=== PATIENT | female | born 1980 | race Caucasian/White ===

== ENCOUNTER 2020-12-10 16:09 | Inpatient (IN) | payer OTHER, SELFPAY ==
[2020-12-10 16:35] VITALS: BP 118/85; PULSE 87; RESP 18; TEMP 36.9; O2SAT 99; BMI 22.5
--- NOTE | 2020-12-10 17:06 | ED_ITS ---
HPI - Psych General Chief Complaint: Psychiatric Symptoms Stated Complaint: crisis sec12 Time Seen by Provider: 12/10/20 16:40 Source: patient, family and EMS Mode of arrival: EMS Limitations: no limitations History of Present Illness HPI Narrative: 40-year-old female with a past medical history of psychosis not otherwise specified here with section [address]. Per father the patient has been off of her medications since January of 2020 and has been increasingly paranoid with delusions. She is currently living in a home that has no electricity and has stopped paying her rent. Patient provides very limited history of present illness. She tells me she is here to receive a COVID vaccine. She denies any hallucinations, suicidal or homicidal ideations. No physical complaints. Related Data Allergies Allergy/AdvReac Type Severity Reaction Status Date / Time No Known Allergies Allergy Unverified 03/22/20 19:42 [No Known Allergies*] Review of Systems Review of Systems: Yes all other systems are reviewed and are negative Constitutional: Constitutional: Reports no additional constitutional complaints, Denies body ache(s), Denies chills, Denies fever(s), Denies h eadache(s) and Denies weakness Eyes: Eyes: Reports no additional eye complaints and Denies change in vision ENT: Reports system reviewed and no additional complaints, except as documented, Denies dizziness, Denies headache(s), Denies nasal congestion, Denies nasal discharge and Denies neck pain Cardiovascular: Cardiovascular: Reports no additional cardiovascular complaints, Denies chest pain, Denies leg edema and Denies dyspnea Respiratory: Respiratory: Reports no additional respiratory complaints, Denies cough and Denies dyspnea Gastrointestinal: Gastrointestinal: Reports no additional gastrointestinal complaints, Denies abdominal pain, Denies diarrhea, Denies nausea and Denies vomiting Genitourinary: Genitourinary: Reports no additional female genitourinary co mplaints and Denies urinary incontinence Musculoskeletal: Musculoskeletal: Reports no additional musculoskeletal complaints, Denies back pain, Denies arthralgias, Denies joint swelling, Denies neck pain, Denies numbness and Denies tingling Integumentary/Breasts: Skin/Breast: Reports system reviewed and no additional complaints, except as docu and Denies rash Neurologic: Reports system reviewed and no additional complaints, except as documented, Denies Abnormal speech present, Reports behavioral changes, Denies dizziness, Denies headache(s), Denies numbness, Denies tingling and Denies weakness Psychiatric: Psychiatric: Reports behavioral changes and Reports paranoia [facility] Past Medical History Attestation statement: The following information was validated with the patient. Source: old records reviewed and nursing notes reviewed Medical History Schizo affective schizophrenia Social History Social History Advance Directives: No Advance Directives Information Provided: No Physical Exam Vital Signs: Vital Signs: Last Vital Signs Temp 98.5 F 12/10/20 16:35 Pulse 87 12/10/20 16:35 Resp 18 12/10/20 16:35 BP 118/85 12/10/20 16:35 Pulse Ox 99 12/10/20 16:35 Body Mass Index 22.5 Const: General: cooperative, healthy appearing, comfortable and no acute distress Orientation/consciousness: patient oriented x3 Limitations: no limitations HENMT: Head: Yes normal to inspection Ears: hearing grossly normal bilaterally General nose exam: Normal external nose present Face and sinus: Yes normal facial exam Mouth: Normal oral and palatal mucosa present Throat: Yes posterior oropharynx normal Eyes: General: appearance normal, both eyes and all related structures Pupils: Equal, round and reactive pupils present Neck: Neck: Yes normal visual inspection Chest: Chest palpation & inspection: normal inspection of the chest Resp: Effort & Inspection: normal respiratory effort Auscultation: clear to auscultation bilaterally Cardio: Rate: regular rate Rhythm: regular rhythm Peripheral pulses: Peripheral pulses 2+ throughout GI: Inspection: Yes normal to inspection Palpation (GI): Soft to palpation and nontender Auscultation: normal bowel sounds Back/Spine/Pelvis: Thoracic/Lumbar Spine: thoracic and lumbar spine normal to inspection Skin: General skin exam: no rashes or lesions noted Neuro: General: patient oriented x3, no focal motor deficits and normal sensation to monofilament Cranial nerves: Yes Equal, round and reactive pupils present Speech: No Abnormal speech present Gait exam (Neuro): Normal gait present Motor exam (neuro): 5/5 motor strength present throughout Extrem: General: Yes normal to inspection Psych: Other: Rambling speech Becomes irritable with questioning Does not answer questions appropriately Appearance: grossly normal Insight: Poor insight present (Psych) Judgement: Poor judgement present (Psych) Course Course Course Narrative: 40-year-old female with a past medical history of psychosis not otherwise specified here with her paranoia, delusions, off all psychiatric medications for more than 6 months. Most of history is obtained from the father Charanjit. No concern for acute ingestion or trauma. Her dad the patient was seen in the community and was placed on a Section 12. Unclear if she is a bed search. Will need labs, drug screen, BHN evaluation. 2049 placed in physician observation pending S evaluation and disposition 2099-Sign out to night team pending above. MDM - Psych Medical Records Attestation: I reviewed the patient's medical records. Lab Data Attestation: I reviewed the patient's lab results. Result diagrams: 12/10/20 17:45 12/10/20 17:45 Labs: Lab Results 12/10/20 12/10/20 12/10/20 Range/Units 17:45 17:45 17:45 WBC 5.9 (4.8-10.8) X10*3/uL RBC 4.44 (4.20-5.50) X10*6/uL Hgb 13.0 (12.0-16.0) g/dl Hct 39.3 (37-47) % MCV 88.5 (80-98) fL MCH 29.3 (27.0-33.0) pg MCHC 33.1 (31.0-35.0) g/dl RDW 12.3 (11.0-16.0) % Plt Count 147 L (160-400) X10*3/uL MPV 11.1 (9.4-12.3) fL Immature Gran % (Auto) 0.3 (0.0-0.4) % Neut % (Auto) 60.3 (45-73) % Lymph % (Auto) 27.3 (20-40) % Lares % (Auto) 9.8 (2-11) % Eos % (Auto) 2.0 (0-4) % Baso % (Auto) 0.3 (0-2) % Lymph # (Auto) 1.6 (1.2-4.9) X10*3/uL Lares # (Auto) 0.6 (0.1-1.2) X10*3/uL Eos # (Auto) 0.1 (0.0-0.4) X10*3/uL Baso # (Auto) 0.0 (0.0-0.2) X10*3/uL Abs Immat Gran (auto) 0.02 (0.00-0.03) X10*3/uL Absolute Neuts (auto) 3.5 (2.0-8.3) X10*3/uL Absolute Nucleated RBC 0.000 (0.0-0.012) X10*3/uL Nucleated RBC % (auto) 0.0 (0.0-0.2) /100WBC Sodium 138 (135-145) mmol/L Potassium 3.9 (3.3-5.1) mmol/L Chloride 104 (96-108) mmol/L Carbon Dioxide 26 (22-29) mmol/L Anion Gap 12 (12-20) BUN 17 H (9-16) mg/dL Creatinine 0.71 (0.5-1.4) mg/dL Estim Creat Clear Calc 96.6 Estimated GFR > 60 Random Glucose 98 (60-115) mg/dL Calcium 9.3 (8.4-10.2) mg/dL Total Bilirubin 0.5 (0.0-1.0) mg/dL Direct Bilirubin < 0.2 (0.0-0.5) mg/dL AST 18 (5-31) U/L ALT 10 (0-31) U/L Alkaline Phosphatase 67 (39-117) U/L Total Protein 7.0 (6.5-8.0) g/dL Albumin 4.3 (3.5-5.0) g/dL Urine Test (NEGATIVE) Salicylates < 5.0 L (15-30) mg/dL Urine Opiates Screen (Not Detect) Acetaminophen < 1 (<30) mcg/mL Ur Barbiturates Screen (Not Detect) Ur Phencyclidine Scrn (Not Detect) Ur Amphetamines Screen (Not Detect) U Benzodiazepines Scrn (Not Detect) Urine Cocaine Screen (Not Detect) U Marijuana (THC) Screen (Not Detect) Ethyl Alcohol < 10 mg/dL 12/10/20 12/10/20 Range/Units 18:03 18:03 WBC (4.8-10.8) X10*3/uL RBC (4.20-5.50) X10*6/uL Hgb (12.0-16.0) g/dl Hct (37-47) % MCV (80-98) fL MCH (27.0-33.0) pg MCHC (31.0-35.0) g/dl RDW (11.0-16.0) % Plt Count (160-400) X10*3/uL MPV (9.4-12.3) fL Immature Gran % (Auto) (0.0-0.4) % Neut % (Auto) (45-73) % Lymph % (Auto) (20-40) % Lares % (Auto) (2-11) % Eos % (Auto) (0-4) % Baso % (Auto) (0-2) % Lymph # (Auto) (1.2-4.9) X10*3/uL Lares # (Auto) (0.1-1.2) X10*3/uL Eos # (Auto) (0.0-0.4) X10*3/uL Baso # (Auto) (0.0-0.2) X10*3/uL Abs Immat Gran (auto) (0.00-0.03) X10*3/uL Absolute Neuts (auto) (2.0-8.3) X10*3/uL Absolute Nucleated RBC (0.0-0.012) X10*3/uL Nucleated RBC % (auto) (0.0-0.2) /100WBC Sodium (135-145) mmol/L Potassium (3.3-5.1) mmol/L Chloride (96-108) mmol/L Carbon Dioxide (22-29) mmol/L Anion Gap (12-20) BUN (9-16) mg/dL Creatinine (0.5-1.4) mg/dL Estim Creat Clear Calc Estimated GFR Random Glucose (60-115) mg/dL Calcium (8.4-10.2) mg/dL Total Bilirubin (0.0-1.0) mg/dL Direct Bilirubin (0.0-0.5) mg/dL AST (5-31) U/L ALT (0-31) U/L Alkaline Phosphatase (39-117) U/L Total Protein (6.5-8.0) g/dL Albumin (3.5-5.0) g/dL Urine Test NEGATIVE (NEGATIVE) Salicylates (15-30) mg/dL Urine Opiates Screen Not Detected (Not Detect) Acetaminophen (<30) mcg/mL Ur Barbiturates Screen Not Detected (Not Detect) Ur Phencyclidine Scrn Not Detected (Not Detect) Ur Amphetamines Screen Not Detected (Not Detect) U Benzodiazepines Scrn Not Detected (Not Detect) Urine Cocaine Screen Not Detected (Not Detect) U Marijuana (THC) Screen Not Detected (Not Detect) Ethyl Alcohol mg/dL Discharge Plan Discharge Clinical Impression: Acute psychosis
[2020-12-10 17:54] LABS: MANUAL DIFF FLAG NO
[2020-12-10 17:57] LABS: Basophils Percent Auto 0.3 % (0-2); Eosinophils Absolute Auto 0.1 X10*3/uL (0.0-0.4); Hematocrit 39.3 % (37-47); Imm Gran Abs Auto 0.02 X10*3/uL (0.00-0.03); Imm Gran Pct Auto 0.3 % (0.0-0.4); Lymphocytes Absolute Auto 1.6 X10*3/uL (1.2-4.9); Lymphocytes Percent Auto 27.3 % (20-40); Mean Corpuscular HGB Conc 33.1 g/dl (31.0-35.0); Mean Corpuscular Hemoglobin 29.3 pg (27.0-33.0); Mean Corpuscular Volume 88.5 fL (80-98); Mean Platelet Volume 11.1 fL (9.4-12.3); Monocytes Absolute Auto 0.6 X10*3/uL (0.1-1.2); Monocytes Percent Auto 9.8 % (2-11); Neutrophils Absolute Auto 3.5 X10*3/uL (2.0-8.3); Neutrophils Percent Auto 60.3 % (45-73); Platelet Count 147 X10*3/uL (160-400); Red Blood Count 4.44 X10*6/uL (4.20-5.50); Red Cell Distribution Width 12.3 % (11.0-16.0); White Blood Count 5.9 X10*3/uL (4.8-10.8)
[2020-12-10 18:19] LABS: UPreg QC Valid YES; Urine Pregnancy NEGATIVE (NEGATIVE)
[2020-12-10 18:23] LABS: Ethanol < 10 mg/dL
[2020-12-10 18:27] LABS: Acetaminophen LAB < 1 mcg/mL (<30); Alanine Aminotransferase 10 U/L (0-31); Albumin Level 4.3 g/dL (3.5-5.0); Alkaline Phosphatase 67 U/L (39-117); Anion Gap 12 (12-20); Aspartate Amino Transferase 18 U/L (5-31); Bilirubin Direct < 0.2 mg/dL (0.0-0.5); Bilirubin Total 0.5 mg/dL (0.0-1.0); Blood Urea Nitrogen 17 mg/dL (9-16); Calcium 9.3 mg/dL (8.4-10.2); Carbon Dioxide 26 mmol/L (22-29); Chloride 104 mmol/L (96-108); Creatinine Clr Calc Pharmacy 96.6; Estimated Glomerular Filt Rate > 60; Glucose Random 98 mg/dL (60-115); Potassium 3.9 mmol/L (3.3-5.1); Salicylate < 5.0 mg/dL (15-30); Sodium 138 mmol/L (135-145)
--- NOTE | 2020-12-10 18:33 | MHC.CARE ---
CARE team contacted Hector re: pt, who arrived on Sect 12a. Per Hector- pt was evaluated prior to arrival and is an active inpt psych bedsearch.
[2020-12-10 18:35] LABS: Amphetamine Screen Urine Not Detected (Not Detect); Barbiturates, Urine Not Detected (Not Detect); Benzodiazepines Screen Urine Not Detected (Not Detect); Cannabinoid Screen Urine Not Detected (Not Detect); Cocaine Screen Urine Not Detected (Not Detect); Opiate Screen Urine Not Detected (Not Detect); Phencyclidine Screen Urine Not Detected (Not Detect)
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
[2020-12-11 11:01] VITALS: BP 104/55; PULSE 68; O2SAT 100
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
--- NOTE | 2020-12-11 18:25 | PC.NURSE ---
Patient does not have insight into why she is here. This reporterr went to her room to have her sign her treatment plan and she said, I'd like to wait until my father is here to go over this. I am here for a covid vaccine. This doesn't make sense. She has not been out of her room.
[2020-12-11 21:48] VITALS: BP 103/66; PULSE 85; TEMP 36.8; O2SAT 99
--- NOTE | 2020-12-12 05:32 | PC.NURSE ---
3day notice submitted on 12/11/20 up 12/14/20
[2020-12-12 06:00] VITALS: BP 106/74; PULSE 84; TEMP 37.1; O2SAT 99
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
[2020-12-12 21:32] VITALS: BP 109/60; PULSE 94; RESP 18; O2SAT 97
[2020-12-13 06:00] VITALS: BP 102/58; PULSE 60; RESP 16; O2SAT 97
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
[2020-12-13 20:18] VITALS: BP 105/55; PULSE 68; RESP 16; TEMP 36.9; O2SAT 97
[2020-12-14 06:00] VITALS: BP 111/68; PULSE 82; RESP 16; O2SAT 98
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
[2020-12-14 18:00] VITALS: BP 105/60; PULSE 76; RESP 18; TEMP 36.9; O2SAT 97
[2020-12-15 06:00] VITALS: BP 102/69; PULSE 88; RESP 18; TEMP 36.4; O2SAT 98
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
[2020-12-15 20:00] VITALS: BP 107/59; PULSE 73; O2SAT 96
[2020-12-16 06:00] VITALS: BP 110/61; PULSE 68; RESP 18; TEMP 36.6; O2SAT 98
--- NOTE | 2020-12-16 15:20 | P.PNPSI_ITS ---
Subjective Subjective Date of Service: 12/16/20 Reason For Visit: Acute psychosis Interim History: Continues to deny having any issues or concerns. Guarded around story writer interviewing patient and reports that she just needs to be discharged and is hopeful that she will be able to meet with her father tomorrow to facilitate same. Otherwise did not want to discuss admission circumstances or how she was doing. Materials Scheduler of Systems Review of Systems unremarkable Yes all other systems are reviewed and are negative Constitutional: Reports no additional constitutional complaints, Denies body ache(s), Denies chills, Denies fever(s), Denies headache(s) and Denies weakness Eyes: Reports no additional eye complaints and Denies change in vision Reports system reviewed and no additional complaints, except as documented, Denies dizziness, Denies headache(s), Denies nasal congestion, Denies nasal discharge and Denies neck pain Cardiovascular: Reports no additional cardiovascular complaints, Denies chest pain, Denies leg edema, Denies lightheadedness and Denies dyspnea Respiratory: Reports no additional respiratory complaints, Denies cough and Denies dyspnea Gastrointestinal: Reports no additional gastrointestinal complaints, Denies abdominal pain, Denies constipation, Denies diarrhea, Denies nausea and Denies vomiting Musculoskeletal: Reports no additional musculoskeletal complaints, Denies back pain, Denies arthralgias, Denies joint swelling, Denies neck pain, Denies numbness and Denies tingling Skin/Breast: Reports system reviewed and no additional complaints, except as docu and Denies rash Reports system reviewed and no additional complaints, except as documented, Den ies Abnormal speech present, Reports behavioral changes, Denies dizziness, Denies headache(s), Denies numbness, Denies tingling and Denies weakness Psychiatric: Reports behavioral changes and Reports paranoia Mental Status Exam Mental Status Exam Narrative: Isolative. Very guarded. Still appears to not understand potential reasons for being in the hospital or why people may be concerned around her well-being and mental state and ability to care for self. Restricted affect. No evidence of SI or HI. Insight and judgment limited Diagnostics Vital Signs (24Hr): Vital Signs - 24 hr 12/15/20 20:00 12/16/20 06:00 Temperature 97.8 F Pulse Rate 73 68 Respiratory Rate 18 Blood Pressure 107/59 L 110/61 Pulse Oximetry 96 98 Body Mass Index 22.5 Labs Results: 12/10/20 17:45 12/10/20 17:45 Medications Medications Current Medications Generic Name Dose Route Start Last Admin Trade Name Freq PRN Reason Stop Dose Admin Acetaminophen 650 mg 12/11/20 00:00 Acetaminophen 325 Mg Tablet PO Q6H PRN Headache/Pain Mild Scale (1-3) Al Hydroxide/Mg Hydroxide 30 ml 12/11/20 00:00 Magnesium Hydrox/Alum Hydrox 30 Ml Oral.Susp PO Q6H PRN Heartburn/Nausea Diphenhydramine HCl 50 mg 12/11/20 00:00 Diphenhydramine Hcl 25 Mg Tablet PO Q4H PRN Restlessness Haloperidol 5 mg 12/11/20 00:00 Haloperidol 5 Mg Tablet PO Q4H PRN Restlessness Hydroxyzine HCl 25 mg 12/11/20 00:00 Hydroxyzine Hcl 25 Mg Tablet PO TID PRN Anxiety Magnesium Hydroxide 30 ml 12/11/20 00:00 Milk Of Magnesia 30 Ml Oral.Susp PO DAILY PRN Constipation Nicotine 21 mg 12/11/20 00:00 Nicotine 21 Mg Patch.Td24 TRANSDERMA DAILY PRN nicotine cessation Nicotine Polacrilex 4 mg 12/11/20 00:00 Nicotine Polacrilex 2 Mg Gum BUCCAL Q2H PRN Nicotine Cravings Trazodone HCl 50 mg 12/11/20 00:00 Trazodone Hcl 50 Mg Tablet PO BEDTIME PRN Insomnia Allergies Allergies Allergy/AdvReac Type Severity Reaction Status Date / Time No Known Allergies Allergy Unverified 03/22/20 19:42 [No Known Allergies*] Assessment & Plan Assessment & Plan (1) Schizophrenia, paranoid, chronic with acute exacerbation: Status: Acute Code(s): F20.0 - Paranoid schizophrenia Assessment and Plan: Ms. Prescott is a 40 year-old woman with hx of schizophrenia. 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 She currently has not insight into psychiatric symptoms. She has been increasingly more paranoid affecting her ability to care for self including being able to pay bills, buy food, house condemned by health department due to no electricity and she loss job due not responding to email due to paranoia. She currently declines any antipsychotics. 1. Medication can be offered, pt understands she can decline given that there is not court order. 12/16/20: no changes as declining his scheduled medications. Understand that treatment team have filed for commitment hearing Greater than 50% of the session was spent on counseling and/or coordination of care Reason for contiued inpatient stay Substantial Risk for: inability to function and rapid decompensation
[2020-12-16 20:27] VITALS: BP 107/60; PULSE 95; TEMP 36.7; O2SAT 97
--- NOTE | 2020-12-17 11:48 | HO.PSYCHPN ---
Subjective Subjective Date of Service: 12/17/20 Reason For Visit: Acute psychosis Interim History: Emma continues to report that she is here for covid vaccine. She states she does not have any mental illness and does not need psychiatric treatment. She states she is worried that people may break into her house and need to return home soon. She states her father reassured her that doors are locked and house safe, however, pt reports she is not sure about this. She denies SI/HI. She continues to decline medications for paranoia. Review of Systems Review of Systems unremarkable Yes all other systems are reviewed and are negative Constitutional: Reports no additional constitutional complaints, Denies body ache(s), Denies chills, Denies fever(s), Denies headache(s) and Denies weakness Eyes: Reports no additional eye complaints and Denies change in vision Reports system reviewed and no additional complaints, except as documented, Denies dizziness, Denies headache(s), Denies nasal congestion, Denies nasal discharge and Denies neck pain Cardiovascular: Reports no additional cardiovascular complaints, Denies chest pain, Denies leg edema, Denies lightheadedness and Denies dyspnea Respiratory: Reports no additional respiratory complaints, Denies cough and Denies dyspnea Gastrointestinal: Reports no additional gastrointestinal complaints, Denies abdominal pain, Denies constipation, Denies diarrhea, Denies nausea and Denies vomiting Musculoskeletal: Reports no additional musculoskeletal complaints, Denies back pain, Denies arthralgias, Denies joint swelling, Denies neck pain, Denies numbness and Denies tingling Skin/Breast: Reports system reviewed and no additional complaints, except as docu and Denies rash Reports system reviewed and no additional complaints, except as documented, Denies Abnormal speech present, Reports behavioral changes, Denies dizziness, Denies headache(s), Denies numbness, Denies tingling and Denies weakness Psychiatric: Reports behavioral changes and Reports paranoia Mental Status Exam Mental Status Exam Narrative: Appearance: wearing hospital gown, poor hygiene, in NAD Behavior: guarded, superficially cooperative Psychomotor: no agitation or retardation noted Speech: clear, regular rate, soft tone, spontaneous TP: disorganized TC: paranoid delusions towards past friends, parents Mood: fine Affect:constricted SI:denies HI:denies AH/VH:denies- appears internally preoccupied Delusions:paranoid delusions of neighbors participating in sex ring, past high school friends trying to hurt her, [employer] instaling devices so she can be monitored. Insight/judgment:impaired x 2. Memory/cog: alert, oriented x 3. impaired secondary to psychiatric symptoms. Diagnostics Vital Signs (24Hr): Vital Signs - 24 hr 12/16/20 20:27 Temperature 98.0 F Pulse Rate 95 Blood Pressure 107/60 Pulse Oximetry 97 Body Mass Index 22.5 Labs Results: 12/10/20 17:45 12/10/20 17:45 Medications Medications Current Medications Generic Name Dose Route Start Last Admin Trade Name Freq PRN Reason Stop Dose Admin Acetaminophen 650 mg 12/11/20 00:00 Acetaminophen 325 Mg Tablet PO Q6H PRN Headache/Pain Mild Scale (1-3) Al Hydroxide/Mg Hydroxide 30 ml 12/11/20 00:00 Magnesium Hydrox/Alum Hydrox 30 Ml Oral.Susp PO Q6H PRN Heartburn/Nausea Diphenhydramine HCl 50 mg 12/11/20 00:00 Diphenhydramine Hcl 25 Mg Tablet PO Q4H PRN Restlessness Haloperidol 5 mg 12/11/20 00:00 Haloperidol 5 Mg Tablet PO Q4H PRN Restlessness Hydroxyzine HCl 25 mg 12/11/20 00:00 Hydroxyzine Hcl 25 Mg Tablet PO TID PRN Anxiety Magnesium Hydroxide 30 ml 12/11/20 00:00 Milk Of Magnesia 30 Ml Oral.Susp PO DAILY PRN Constipation Nicotine 21 mg 12/11/20 00:00 Nicotine 21 Mg Patch.Td24 TRANSDERMA DAILY PRN nicotine cessation Nicotine Polacrilex 4 mg 12/11/20 00:00 Nicotine Polacrilex 2 Mg Gum BUCCAL Q2H PRN Nicotine Cravings Trazodone HCl 50 mg 12/11/20 00:00 Trazodone Hcl 50 Mg Tablet PO BEDTIME PRN Insomnia Allergies Allergies Allergy/AdvReac Type Severity Reaction Status Date / Time No Known Allergies Allergy Unverified 03/22/20 19:42 [No Known Allergies*] Assessment & Plan Assessment & Plan (1) Schizophrenia, paranoid, chronic with acute exacerbation: Status: Acute Code(s): F20.0 - Paranoid schizophrenia Assessment and Plan: Ms. Prescott is a 40 year-old woman with hx of schizophrenia. 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 She currently has not insight into psychiatric symptoms. She has been increasingly more paranoid affecting her ability to care for self including being able to pay bills, buy food, house condemned by health department due to no electricity and she loss job due not responding to email due to paranoia. She currently declines any antipsychotics. 1. Medication can be offered, pt understands she can decline given that there is no court order. Greater than 50% of the session was spent on counseling and/or coordination of care Reason for contiued inpatient stay Substantial Risk for: inability to function
[2020-12-17 18:00] VITALS: BP 108/62; PULSE 92; TEMP 36.6
[2020-12-18 06:00] VITALS: BP 97/64; PULSE 80; RESP 16; TEMP 36.6; O2SAT 98
--- NOTE | 2020-12-18 08:04 | HO.PSYCHPN ---
Subjective Subjective Date of Service: 12/20/20 Reason For Visit: Acute psychosis Interim History: Emma was up early this morning. At night per nursing was up for some time, had slammed some door but went back to sleep. She continues to report that she is here in hospital for covid vaccine. She continues to report that she does not have mental illness nor she needs psychiatric medications. She reports wanting to go home, worry that people may break into her house. She denies SI/HI. Review of Systems Review of Systems unremarkable Yes all other systems are reviewed and are negative Constitutional: Reports no additional constitutional complaints, Denies body ache(s), Denies chills, Denies fever(s), Denies headache(s) and Denies weakness Eyes: Reports no additional eye complaints and Denies change in vision Reports system reviewed and no additional complaints, except as documented, Denies dizziness, Denies headache(s), Denies nasal congestion, Denies nasal discharge and Denies neck pain Cardiovascular: Reports no additional cardiovascular complaints, Denies chest pain, Denies leg edema, Denies lightheadedness and Denies dyspnea Respiratory: Reports no additional respiratory complaints, Denies cough and Denies dyspnea Gastrointestinal: Reports no additional gastrointestinal complaints, Denies abdominal pain, Denies constipation, Denies diarrhea, Denies nausea and Denies vomiting Musculoskeletal: Reports no additional musculoskeletal complaints, Denies back pain, Denies arthralgias, Denies joint swelling, Denies neck pain, Denies numbness and Denies tingling Skin/Breast: Reports system reviewed and no additional complaints, except as docu and Denies rash Reports system reviewed and no additional complaints, except as documented, Denies Abnormal speech present, Reports behavioral changes, Denies dizziness, Denies headache(s), Denies numbness, Denies tingling and Denies weakness Psychiatric: Reports behavioral changes and Reports paranoia Mental Status Exam Mental Status Exam Narrative: Appearance: wearing hospital gown, poor hygiene, in NAD Behavior: guarded, superficially cooperative Psychomotor: no agitation or retardation noted Speech: clear, regular rate, soft tone, spontaneous TP: disorganized TC: paranoid delusions towards past friends, parents Mood: fine Affect:constricted SI:denies HI:denies AH/VH:denies- appears internally preoccupied Delusions:paranoid delusions of neighbors participating in sex [employer], past high school friends trying to hurt her, [employer] instaling devices so she can be monitored. Insight/judgment:impaired x 2. Memory/cog: alert, oriented x 3. impaired secondary to psychiatric symptoms. Diagnostics Vital Signs (24Hr): Vital Signs - 24 hr 12/19/20 10:00 12/19/20 19:59 12/20/20 06:22 Temperature 98.3 F 98.4 F 98.4 F Pulse Rate 86 70 77 Respiratory Rate 16 Blood Pressure 94/71 105/60 102/67 Pulse Oximetry 96 97 97 Body Mass Index 22.5 Labs Results: 12/10/20 17:45 12/10/20 17:45 Medications Medications Current Medications Generic Name Dose Route Start Last Admin Trade Name Freq PRN Reason Stop Dose Admin Acetaminophen 650 mg 12/11/20 00:00 Acetaminophen 325 Mg Tablet PO Q6H PRN Headache/Pain Mild Scale (1-3) Al Hydroxide/Mg Hydroxide 30 ml 12/11/20 00:00 Magnesium Hydrox/Alum Hydrox 30 Ml Oral.Susp PO Q6H PRN Heartburn/Nausea Diphenhydramine HCl 50 mg 12/11/20 00:00 Diphenhydramine Hcl 25 Mg Tablet PO Q4H PRN Restlessness Haloperidol 5 mg 12/11/20 00:00 Haloperidol 5 Mg Tablet PO Q4H PRN Restlessness Hydroxyzine HCl 25 mg 12/11/20 00:00 Hydroxyzine Hcl 25 Mg Tablet PO TID PRN Anxiety Magnesium Hydroxide 30 ml 12/11/20 00:00 Milk Of Magnesia 30 Ml Oral.Susp PO DAILY PRN Constipation Nicotine 21 mg 12/11/20 00:00 Nicotine 21 Mg Patch.Td24 TRANSDERMA DAILY PRN nicotine cessation Nicotine Polacrilex 4 mg 12/11/20 00:00 Nicotine Polacrilex 2 Mg Gum BUCCAL Q2H PRN Nicotine Cravings Trazodone HCl 50 mg 12/11/20 00:00 Trazodone Hcl 50 Mg Tablet PO BEDTIME PRN Insomnia Allergies Allergies Allergy/AdvReac Type Severity Reaction Status Date / Time No Known Allergies Allergy Unverified 03/22/20 19:42 [No Known Allergies*] Assessment & Plan Assessment & Plan (1) Schizophrenia, paranoid, chronic with acute exacerbation: Status: Acute Code(s): F20.0 - Paranoid schizophrenia Assessment and Plan: Ms. Prescott is a 40 year-old woman with hx of schizophrenia. 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 She currently has not insight into psychiatric symptoms. She has been increasingly more paranoid affecting her ability to care for self including being able to pay bills, buy food, house condemned by health department due to no electricity and she loss job due not responding to email due to paranoia. She currently declines any antipsychotics. 1. Medication can be offered, pt understands she can decline given that there is no court order. Greater than 50% of the session was spent on counseling and/or coordination of care Reason for contiued inpatient stay Substantial Risk for: inability to function
[2020-12-18 22:45] VITALS: BP 105/67; PULSE 89; TEMP 37.1; O2SAT 97
--- NOTE | 2020-12-19 08:05 | HO.PSYCHPN ---
Subjective Subjective Date of Service: 12/20/20 Reason For Visit: Acute psychosis Interim History: Emma has been mostly in her room, minimally interactive with peers. She reports wants to go home soon, continues to report that she is here for coivd vaccine despite being explained we don't give in hospital and usually not a reason for someone to be in psychiatric unit. She denies having mental illness, guarded but fairly cooperative. Not forthcoming with extend of delusions. She denies SI/HI. No aggression towards self or others. Review of Systems Review of Systems unremarkable Yes all other systems are reviewed and are negative Constitutional: Reports no additional constitutional complaints, Denies body ache(s), Denies chills, Denies fever(s), Denies headache(s) and Denies weakness Eyes: Reports no additional eye complaints and Denies change in vision Reports system reviewed and no additional complaints, except as documented, Denies dizziness, Denies headache(s), Denies nasal congestion, Denies nasal discharge and Denies neck pain Cardiovascular: Reports no additional cardiovascular complaints, Denies chest pain, Denies leg edema, Denies lightheadedness and Denies dyspnea Respiratory: Reports no additional respiratory complaints, Denies cough and Denies dyspnea Gastrointestinal: Reports no additional gastrointestinal complaints, Denies abdominal pain, Denies constipation, Denies diarrhea, Denies nausea and Denies vomiting Musculoskeletal: Reports no additional musculoskeletal complaints, Denies back pain, Denies arthralgias, Denies joint swelling, Denies neck pain, Denies numbness and Denies tingling Skin/Breast: Reports system reviewed and no additional complaints, except as docu and Denies rash Reports system reviewed and no additional complaints, except as documented, Denies Abnormal speech present, Reports behavioral changes, Denies dizziness, Denies headache(s), Denies numbness, Denies tingling and Denies weakness Psychiatric: Reports behavioral changes and Reports paranoia Mental Status Exam Mental Status Exam Narrative: Appearance: wearing hospital gown, poor hygiene, in NAD Behavior: guarded, superficially cooperative Psychomotor: no agitation or retardation noted Speech: clear, regular rate, soft tone, spontaneous TP: disorganized TC: paranoid delusions towards past friends, parents Mood: fine Affect:constricted SI:denies HI:denies AH/VH:denies- appears internally preoccupied Delusions:paranoid delusions of neighbors participating in sex [employer], past high school friends trying to hurt her, [employer] instaling devices so she can be monitored. Insight/judgment:impaired x 2. Memory/cog: alert, oriented x 3. impaired secondary to psychiatric symptoms. Diagnostics Vital Signs (24Hr): Vital Signs - 24 hr 12/19/20 10:00 12/19/20 19:59 12/20/20 06:22 Temperature 98.3 F 98.4 F 98.4 F Pulse Rate 86 70 77 Respiratory Rate 16 Blood Pressure 94/71 105/60 102/67 Pulse Oximetry 96 97 97 Body Mass Index 22.5 Labs Results: 12/10/20 17:45 12/10/20 17:45 Medications Medications Current Medications Generic Name Dose Route Start Last Admin Trade Name Freq PRN Reason Stop Dose Admin Acetaminophen 650 mg 12/11/20 00:00 Acetaminophen 325 Mg Tablet PO Q6H PRN Headache/Pain Mild Scale (1-3) Al Hydroxide/Mg Hydroxide 30 ml 12/11/20 00:00 Magnesium Hydrox/Alum Hydrox 30 Ml Oral.Susp PO Q6H PRN Heartburn/Nausea Diphenhydramine HCl 50 mg 12/11/20 00:00 Diphenhydramine Hcl 25 Mg Tablet PO Q4H PRN Restlessness Haloperidol 5 mg 12/11/20 00:00 Haloperidol 5 Mg Tablet PO Q4H PRN Restlessness Hydroxyzine HCl 25 mg 12/11/20 00:00 Hydroxyzine Hcl 25 Mg Tablet PO TID PRN Anxiety Magnesium Hydroxide 30 ml 12/11/20 00:00 Milk Of Magnesia 30 Ml Oral.Susp PO DAILY PRN Constipation Nicotine 21 mg 12/11/20 00:00 Nicotine 21 Mg Patch.Td24 TRANSDERMA DAILY PRN nicotine cessation Nicotine Polacrilex 4 mg 12/11/20 00:00 Nicotine Polacrilex 2 Mg Gum BUCCAL Q2H PRN Nicotine Cravings Trazodone HCl 50 mg 12/11/20 00:00 Trazodone Hcl 50 Mg Tablet PO BEDTIME PRN Insomnia Allergies Allergies Allergy/AdvReac Type Severity Reaction Status Date / Time No Known Allergies Allergy Unverified 03/22/20 19:42 [No Known Allergies*] Assessment & Plan Assessment & Plan (1) Schizophrenia, paranoid, chronic with acute exacerbation: Status: Acute Code(s): F20.0 - Paranoid schizophrenia Assessment and Plan: Ms. Prescott is a 40 year-old woman with hx of schizophrenia. 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 She currently has not insight into psychiatric symptoms. She has been increasingly more paranoid affecting her ability to care for self including being able to pay bills, buy food, house condemned by health department due to no electricity and she loss job due not responding to email due to paranoia. She currently declines any antipsychotics. 1. Medication can be offered, pt understands she can decline given that there is no court order. Greater than 50% of the session was spent on counseling and/or coordination of care Reason for contiued inpatient stay Substantial Risk for: inability to function
[2020-12-19 10:00] VITALS: BP 94/71; PULSE 86; RESP 16; TEMP 36.8; O2SAT 96
[2020-12-19 19:59] VITALS: BP 105/60; PULSE 70; TEMP 36.9; O2SAT 97
[2020-12-20 06:22] VITALS: BP 102/67; PULSE 77; TEMP 36.9; O2SAT 97
--- NOTE | 2020-12-20 11:28 | P.DS_ITS ---
DS: Providers Provider Date of Service: 01/19/21 Date of admission: 12/10/20 23:32 Primary care physician: Leana Russo MD DS: Diagnosis Discharge Diagnosis (1) Schizophrenia, paranoid, chronic with acute exacerbation: Status: Acute Discharge Plan Discharge Patient Disposition: Home, Self-Care Discharge Diagnosis: Schizophrenia Referrals: [facility] [Other] (Call intake line if interested in therapy/psychiatry) Leana Russo MD [Primary Care Provider] - 1 Week Discharge Orders: Discharge Order (Routine); Ordered 12/20/20 Ordered By: Rossi Palmer Diet: regular diet Activity on Discharge: As tolerated Stand Alone Forms: Patient Portal Discharge page, Community Support Care Plan Goals: 1. safety at home, able to care for self Health Concerns: follow up with PCP Plan of Treatment: 1. Go to nearest ED or call 911 in event of emergency Assessment: No aggression towards self or others. Continues with paranoia. Discharge Date/Time: 12/20/20 12:06 Mental Status Exam Mental Status Exam Narrative: Appearance: wearing hospital gown, poor hygiene, in NAD Behavior: guarded, superficially cooperative Psychomotor: no agitation or retardation noted Speech: clear, regular rate, soft tone, spontaneous TP: disorganized TC: paranoid delusions towards past friends, parents Mood: fine Affect:constricted SI:denies HI:denies AH/VH:denies- appears internally preoccupied Delusions:paranoid delusions of neighbors participating in sex [employer], past high school friends trying to hurt her, [employer] instaling devices so she can be joão tored. Insight/judgment:impaired x 2. Memory/cog: alert, oriented x 3. impaired secondary to psychiatric symptoms. DS: Summary Hospital Course Hospital Course: Ms. Prescott is a 40 year-old woman with hx of schizophrenia. Pt was brought via EMS to [facility] on 12/10/2020 after police and N crisis were called due to pt presenting as increasingly more paranoid and delusional towards neighbors, parents, unable to care for herself in that she had no food in her refrigerator, has not payed any bills and her electricity was shut down and health department condemned her house. Pt apparently has had symptoms of psychosis and paranoia for about 17 years. Pt apparently was stable for about 11 years taking medications consistently mostly Geodone and fair insight into her psychiatric symptoms. However, her parents have noticed that for the past 2 years she has refused to take psychiatric medications, she closed case with her terminal makeup operator psychiatrist, Dr. Jaskaran Coronado and now denies having any mental illness. Her parents report that she has been increasingly more paranoid, thinking that old high school classmates are trying to hurt her. Pt also believes that these classmates are buying houses close to her to monitor her. She also believes that [employer] had installed devices in her house to monitor her. She has blamed her parents for being behind covid pandemic as well as others. 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 Therefore, she lost her job last year. Per her parents, she received letter letting her go from her job, but patient insists that she can go back to work at anytime. Parents report that they call her often but she would not answer their call or her brother's call. She sporadically send them text messages which apparently are unintelligible or word salad, per her parents. Parents came from [place] where they live during this past winter and she had most utilities shut off including heat/oil, refrigerator was empty, furniture was blocking most door in the house. Parents have been sending pt $2,500 monthly to cover bills, but patient has not paid any. Mortgage is behind but at this point parents not aware how behind she is and likelihood of being evicted. Pt lives alone in house she owns. She does not have internet as she believes she is being monitored. On the unit, Ms. Prescott tells this magnetic tape typewriter operator that she is here because they told me I can get the covid vaccine here. When explained she is in the psychiatric unit, which she is aware, and usually patient don't come because of need of vaccination, she reported that her parents were overly concern but that she was doing well and did not need any psychiatric care. She reported I'm sensitive and intuitive but this is not a mental illness. She reports she was wrongly labeled and now everyone assumes that there is something wrong with her. When asked about why she has not paid her bills, she is unable to give an explanation. She states there are people that may have been jealous of her and may have tried to hurt her. She is careful about these reports and does not appeared fully forthcoming about extend of paranoid delusions. There is significant evidenced that due to delusional content she is not able to care for herself. Past Psychiatric History: Inpatient: [facility] 06/2028; M5 01/2019 OP: none currently. In past saw Dr. Dimas for 11 years. Suicide attempts: none Past trial: cheri (effective), not sure about other past trials HOSPITAL COURSE On the unit, Ms. Prescott presented as guarded, suspicious. She reported being in the unit because she had a agreed to have covid vaccine. She reported being a intuitive, very creative person who was able to see connections around her. She reports she has been thinking about who was behind covid and the pandemic. She also admitted to at times not staying in her apartment because she did not feel safe and thought people were after her. However, she could also present as fairly rational in that she would say that she did not pay bills or mortgage because she had lost her job, although her parents were sending her money. She was calm and cooperative throughout the hospital stay. She did not think she had any mental illness and that she did not need any medications. She did not show any signs of aggression towards self or others. She denied SI/HI. She was mostly in her room, minimal interaction with peers. After discussing risks, benefits and alternative treatment options, pt continued to decline taking any medications. Collateral information was gathered from her parents who were concern about her ability to care for self mostly losing her j ob recently due to paranoia but they denied any recent self harm or harm to others. However, there was not much to indicate imminent risk of harm to self or others without treatment to petition court for involuntary. Therefore, she was discharged to community once her 3 day notice . Status at Discharge Functional status at discharge: independent ambulation Overall status at discharge: patient is not back to baseline Time Spent with Patient Time attestation: Total time spent providing and/or coordinating discharge services:
== END 2020-12-20 12:06 | disposition home or self-care (01) | DRG 750 ==
LOC: HO.ED 17:05 → HO.PADLT16 23:50
PROVIDERS: Nurse Practitioner Family; Admitting Provider Psychiatry & Neurology Psychiatry; Emergency Provider Internal Medicine; PCP Family Medicine; Visit Provider Social Worker
DX: F20.0 Paranoid schizophrenia (principal); Z91.14 Patient's other noncompliance with medication regimen
CPT/HCPCS: 36415; 80048; 80076; 80143; 80179; 80307; 81025; 82077; 85025; 99285